=== PATIENT | male | born 1940 | race Caucasian/White ===

== ENCOUNTER → 2022-07-29 | Outpatient (CLI) | payer OTHER ==
[~2022-07-29] VITALS: Ht 188 cm; Wt 87.5 kg
== END ==
LOC: OPSV 14:50
DX: N39.0 Urinary tract infection, site not specified (principal)
CPT/HCPCS: 96365; J2185

== ENCOUNTER → 2022-07-30 | Outpatient (CLI) | payer OTHER | LOC: OPSV 14:56 | DX: N39.0 Urinary tract infection, site not specified (principal) | CPT/HCPCS: 96365; J2185 ==